=== PATIENT | female | born 1960 ===

== ENCOUNTER 2020-07-30 18:05 | Inpatient (IN) | payer BC, OTHER ==
[~2020-07-30] VITALS: Ht 162.6 cm; Wt 91.8 kg
--- NOTE | 2020-07-30 18:22 | NUR ---
BIB [facility]IGHT FROM [facility] FOR C/O ABD PAIN AND EPIGASTRIC ABD PAIN. PT STATES IT STARTED SUNDAY AND BECAME CONSISTENT ON SUNDAY. HAD US DONE AT OUTLYING FACILITY AND FOUND TO HAVE CHOLECYSTITIS. WBC 17.8. UA NEGATIVE. WAS GIVEN ZOSYN, FLAGYL, ZOFRAN PROCESS DESIGN ENGINEER AND 1L NS IN PROGRESS ON ARRIVAL. PT RESTING ON [place]ING[place]. NADN. MONITORS APPLIED.
--- NOTE | 2020-07-30 18:24 | NUR ---
ERP DR. MACARIO AT BEDSIDE FOR EVAL.
--- NOTE | 2020-07-30 18:54 | NUR ---
SURGEON DR. DIETRICH AT BEDSIDE FOR EVAL.
[2020-07-30 19:23] LABS: MEAN CORPUSCULAR HEMOGLOBIN 31.4 pg (27.0-34.8); MEAN CORPUSCULAR HGB CONC 33.4 g/dL (32.4-35.8); PLATELET COUNT 243 x10^3/uL (130-400); RED BLOOD COUNT 4.94 x10^6/uL (3.82-5.3); RED CELL DISTRIBUTION WIDTH 14.1 % (9.6-15.2)
[2020-07-30 19:30] LABS: ALBUMIN 3.4 g/dL (3.4-5.0); ANION GAP 8 mmol/L (5-15); CHLORIDE 109 mmol/L (98-107)
[2020-07-30 19:33] LABS: ALANINE AMINOTRANSFERASE 19 U/L (12-78); ALKALINE PHOSPHATASE 57 U/L (45-117); BILIRUBIN,TOTAL 0.7 mg/dL (0.2-1.0); CREATININE 0.57 mg/dL (0.55-1.02); TOTAL PROTEIN 7.7 g/dL (6.4-8.2)
[2020-07-30] MEDS ORDERED: MORPHINE SULFATE 4 MG/ML, 1ML ONE (19:45)
[2020-07-30] MEDS ORDERED: ONDANSETRON 2MG/ML, 2ML ONE (19:45)
[2020-07-30 19:57] LABS: LYMPH#(MANUAL) 2.09 x10^3/uL (1-3.4); LYMPHS% (MANUAL) 11 % (22-44); MONOS% (MANUAL) 10 % (2-9); SEG#(MANUAL) 15.01 x10^3/uL (1.8-6.8); SEGS% (MANUAL) 79 % (42-75)
[2020-07-30 19:58] LABS: <PLATELET ESTIMATE> ADEQUATE; <PLT MORPHOLOGY> NORMAL PLT MORPH; <RBC MORPHOLOGY> NORMAL; <WBC MORPHOLOGY> NORMAL
[2020-07-30] MEDS ORDERED: MORPHINE SULFATE 4 MG/ML, 1ML IVPush PRN (20:00)
[2020-07-30] MEDS ORDERED: SODIUM CHLORIDE 0.9% 1,000 ML IV ONE (20:00)
[2020-07-30] MEDS ORDERED: ONDANSETRON 2MG/ML, 2ML IVPush PRN ×2 (20:00→21:00)
--- NOTE | 2020-07-30 20:10 | NUR ---
PT RESTING ON GURNEY. NADN. MURPHY.
--- NOTE | 2020-07-30 20:34 | NUR ---
REPORT GIVEN TO LORNA RODRIGUEZ RN. ALL QUESTIONS ANSWERED. AWAITING PT TRANSPORT.
[2020-07-30] MEDS ORDERED: morphine SULFATE 10 MG/ML, 1ML IVPush PRN (21:00)
[2020-07-30] MEDS ORDERED: LABETALOL 5MG/ML, 20ML IVPush PRN (21:00)
[2020-07-30] MEDS ORDERED: ACETAMINOPHEN 325 MG TABLET PO PRN (21:00)
[2020-07-30] MEDS ORDERED: LACTATED RINGERS 1,000 ML IV SCH (21:00)
[2020-07-30 21:30] VITALS: BP 150/83
[2020-07-30] MEDS: NICOTINE 21 MG/24 HR PATCH.TD24 TD SCH (22:00)
[2020-07-30 22:12] LABS: TROPONIN I < 0.015 ng/mL (0.000-0.045)
[2020-07-31] MEDS: PIPERACILLIN/TAZO 3.375 GM in DEXTROSE 5% 50 ML IV SCH ×2 (00:40→06:33)
[2020-07-31 02:54] VITALS: BP 125/75
[2020-07-31 05:43] LABS: CHLORIDE 108 mmol/L (98-107)
[2020-07-31 05:49] LABS: ALANINE AMINOTRANSFERASE 20 U/L (12-78); ALBUMIN 3.1 g/dL (3.4-5.0); ALKALINE PHOSPHATASE 54 U/L (45-117); ANION GAP 4 mmol/L (5-15); BILIRUBIN,TOTAL 0.6 mg/dL (0.2-1.0); CALCIUM 9.1 mg/dL (8.5-10.1); CREATININE 0.49 mg/dL (0.55-1.02); TOTAL PROTEIN 7.1 g/dL (6.4-8.2)
[2020-07-31 05:50] LABS: BASOPHILS % (AUTO) 1 % (0-1); EOSINOPHILS % (AUTO) 0 % (1-7); LYMPHOCYTES % (AUTO) 11 % (22-44); MEAN CORPUSCULAR HEMOGLOBIN 31.6 pg (27.0-34.8); MEAN CORPUSCULAR HGB CONC 33.4 g/dL (32.4-35.8); MEAN PLATELET VOLUME 9.1 fL (7.4-10.4); MONOCYTES % (AUTO) 10 % (2-9); NEUTROPHILS % (AUTO) 79 % (42-75); PLATELET COUNT 215 x10^3/uL (130-400); RED CELL DISTRIBUTION WIDTH 14.4 % (9.6-15.2)
[2020-07-31] MEDS ORDERED: EPINEPHRINE 1 MG/ML, 1ML ONE (07:05)
[2020-07-31] MEDS ORDERED: BUPIVACAINE/PF 0.5% ONE (07:05)
[2020-07-31] MEDS ORDERED: HYDROmorphone 1 MG/ML, 1ML INJ IVPush PRN (08:00)
[2020-07-31] MEDS ORDERED: FENTANYL PF 100 MCG/2ML IV PRN (08:00)
[2020-07-31] MEDS ORDERED: hydrALAzine 20 MG/ML, 1ML IV PRN (08:00)
[2020-07-31] MEDS ORDERED: PROMETHAZINE 25 MG/ML, 1ML IVPush PRN (08:00)
[2020-07-31] MEDS ORDERED: OXYcodone 5 MG/5 ML ORAL.SOL UDC PO PRN (08:00)
[2020-07-31] MEDS ORDERED: EPHEDRINE 50 MG/ML, 1ML IVPush PRN (08:00)
[2020-07-31] MEDS ORDERED: ONDANSETRON 2MG/ML, 2ML IVPush PRN (08:00)
[2020-07-31] MEDS ORDERED: ACETAMINOPHEN 325 MG TABLET PO PRN (08:00)
[2020-07-31] MEDS ORDERED: LABETALOL 5MG/ML, 20ML IV PRN (08:00)
[2020-07-31] MEDS ORDERED: FENTANYL PF 100 MCG/2ML ONE (08:03)
[2020-07-31] MEDS ORDERED: MIDAZOLAM 1 MG/ML, 2ML ONE (08:03)
[2020-07-31] MEDS ORDERED: CEFAZOLIN 1,000 MG ONE (08:25)
[2020-07-31] MEDS: HEPARIN 5,000 UNITS/ML, 1ML SQ SCH ×2 (08:30→16:41)
[2020-07-31] MEDS ORDERED: PROPOFOL 10 MG/ML, 20ML ONE (08:35)
[2020-07-31] MEDS ORDERED: SUCCINYLCHOLINE 20 MG/ML, 10ML ONE (08:35)
[2020-07-31] MEDS ORDERED: ROCURONIUM 10MG/ML,5ML ONE (08:35)
[2020-07-31] MEDS ORDERED: DEXAMETHASONE 4 MG/ML, 5ML ONE (08:35)
[2020-07-31] MEDS ORDERED: ONDANSETRON 2MG/ML, 2ML ONE (08:35)
[2020-07-31] MEDS ORDERED: SUGAMMADEX 200 MG/2 ML IVPush ONE (08:35)
[2020-07-31] MEDS ORDERED: KETOROLAC 30 MG/1 ML ONE (08:37)
[2020-07-31] MEDS ORDERED: LIDOCAINE-MPF 2% ,5ML ONE (08:37)
[2020-07-31] MEDS ORDERED: EPHEDRINE 50 MG/ML, 1ML ONE ×2 (08:41)
[2020-07-31] MEDS ORDERED: HYDROmorphone 1 MG/ML, 1ML INJ ONE (09:03)
[2020-07-31] MEDS: CARVEDILOL 6.25 MG TABLET PO SCH ×2 (09:07→16:41)
[2020-07-31] MEDS ORDERED: ACETAMINOPHEN 650 MG/20.3 ML UDC ONE (10:02)
[2020-07-31] MEDS ORDERED: OXYcodone 5 MG/5 ML ORAL.SOL UDC ONE (10:03)
[2020-07-31 12:36] LABS: INTERNATIONAL NORMALIZED RATIO 1.07 (0.93-1.1); PROTHROMBIN TIME 11.4 Seconds (9.6-11.5)
[2020-07-31 14:09] VITALS: BP 121/78
[2020-07-31] MEDS: METRONIDAZOLE PMX 500MG/100ML 100 ML IV SCH ×2 (15:00→23:33)
[2020-07-31] MEDS: CEFTRIAXONE 2 GM in DEXTROSE 5% 50 ML IVPB SCH (15:20)
[2020-07-31] MEDS: SENNA/DOCUSATE TABLET PO SCH ×2 (15:20→20:53)
[2020-07-31 16:40] VITALS: BP 159/84
[2020-07-31] MEDS: OXYcodone IR 5MG TABLET PO PRN ×2 (16:41→23:33)
[2020-07-31 19:09] VITALS: BP 133/82
[2020-07-31] MEDS: NICOTINE 21 MG/24 HR PATCH.TD24 TD SCH (21:00)
[2020-07-31] MEDS ORDERED: LACTATED RINGERS 1,000 ML IV SCH (21:00)
[2020-08-01] MEDS: HEPARIN 5,000 UNITS/ML, 1ML SQ SCH ×3 (00:25→16:37)
[2020-08-01 01:07] VITALS: BP 133/83
[2020-08-01 05:40] LABS: BASOPHILS % (AUTO) 0 % (0-1); EOSINOPHILS % (AUTO) 0 % (1-7); LYMPHOCYTES % (AUTO) 12 % (22-44); MEAN CORPUSCULAR HEMOGLOBIN 31.6 pg (27.0-34.8); MEAN CORPUSCULAR HGB CONC 33.4 g/dL (32.4-35.8); MONOCYTES % (AUTO) 7 % (2-9); NEUTROPHILS % (AUTO) 81 % (42-75); PLATELET COUNT 210 x10^3/uL (130-400); RED BLOOD COUNT 4.19 x10^6/uL (3.82-5.3)
[2020-08-01] MEDS: CARVEDILOL 6.25 MG TABLET PO SCH ×2 (05:54→18:15)
[2020-08-01] MEDS: OXYcodone IR 5MG TABLET PO PRN ×3 (05:54→18:21)
[2020-08-01 06:00] LABS: ANION GAP 5 mmol/L (5-15); CALCIUM 8.8 mg/dL (8.5-10.1); CHLORIDE 103 mmol/L (98-107)
[2020-08-01 06:04] LABS: CREATININE 0.54 mg/dL (0.55-1.02)
[2020-08-01] MEDS: METRONIDAZOLE PMX 500MG/100ML 100 ML IV SCH (06:41)
[2020-08-01 07:50] VITALS: BP 113/77
[2020-08-01] MEDS: SENNA/DOCUSATE TABLET PO SCH ×2 (08:48→22:17)
[2020-08-01 13:22] VITALS: BP 118/88
[2020-08-01 13:26] LABS: ALANINE AMINOTRANSFERASE 80 U/L (12-78); ALBUMIN 2.7 g/dL (3.4-5.0); ANION GAP 7 mmol/L (5-15); CALCIUM 8.8 mg/dL (8.5-10.1); CHLORIDE 101 mmol/L (98-107); CREATININE 0.55 mg/dL (0.55-1.02)
[2020-08-01 13:28] LABS: ALKALINE PHOSPHATASE 55 U/L (45-117); BILIRUBIN,TOTAL 0.4 mg/dL (0.2-1.0); TOTAL PROTEIN 6.9 g/dL (6.4-8.2)
[2020-08-01] MEDS: metroNIDAZOLE 500 MG TABLET PO SCH ×2 (14:23→22:17)
[2020-08-01] MEDS: CEFTRIAXONE 2 GM in DEXTROSE 5% 50 ML IVPB SCH (15:25)
[2020-08-01 18:14] VITALS: BP 131/84
[2020-08-01] MEDS: LACTATED RINGERS 1,000 ML IV SCH (21:00)
[2020-08-01] MEDS: NICOTINE 21 MG/24 HR PATCH.TD24 TD SCH (22:16)
[2020-08-02] MEDS: OXYcodone IR 5MG TABLET PO PRN ×3 (01:02→17:41)
[2020-08-02] MEDS: HEPARIN 5,000 UNITS/ML, 1ML SQ SCH ×3 (01:02→17:13)
[2020-08-02 02:37] VITALS: BP 114/70
[2020-08-02 05:40] LABS: BASOPHILS % (AUTO) 0 % (0-1); EOSINOPHILS % (AUTO) 1 % (1-7); LYMPHOCYTES % (AUTO) 28 % (22-44); MEAN CORPUSCULAR HEMOGLOBIN 31.7 pg (27.0-34.8); MEAN CORPUSCULAR HGB CONC 33.1 g/dL (32.4-35.8); MONOCYTES % (AUTO) 9 % (2-9); NEUTROPHILS % (AUTO) 63 % (42-75); PLATELET COUNT 260 x10^3/uL (130-400); RED BLOOD COUNT 4.37 x10^6/uL (3.82-5.3); RED CELL DISTRIBUTION WIDTH 14.1 % (9.6-15.2)
[2020-08-02] MEDS: CARVEDILOL 6.25 MG TABLET PO SCH ×2 (06:29→18:24)
[2020-08-02] MEDS: metroNIDAZOLE 500 MG TABLET PO SCH ×3 (06:29→22:14)
[2020-08-02 07:20] VITALS: BP 114/77
[2020-08-02 08:20] LABS: ALANINE AMINOTRANSFERASE 83 U/L (12-78); ALBUMIN 2.5 g/dL (3.4-5.0)
[2020-08-02 08:21] LABS: ALKALINE PHOSPHATASE 69 U/L (45-117); BILIRUBIN,TOTAL 0.3 mg/dL (0.2-1.0); TOTAL PROTEIN 7.1 g/dL (6.4-8.2)
[2020-08-02 08:25] LABS: BILIRUBIN, DIRECT < 0.1 mg/dL (0.1-0.2); BILIRUBIN,INDIRECT 0.2 mg/dL (0.0-2.0)
[2020-08-02] MEDS ORDERED: BISACODYL 10 MG SUPP PR SCH (09:00)
[2020-08-02] MEDS: AMOXICILLIN 500 MG CAPSULE PO SCH ×2 (09:15→20:24)
[2020-08-02] MEDS: SENNA/DOCUSATE TABLET PO SCH ×2 (09:15→20:24)
[2020-08-02] MEDS ORDERED: ACET325T26 PO (09:36)
[2020-08-02] MEDS ORDERED: NICO-587 TD (09:36)
[2020-08-02] MEDS ORDERED: METR500T PO (09:36)
[2020-08-02] MEDS ORDERED: AMOX-291 PO (09:36)
[2020-08-02] MEDS ORDERED: SENN-211 PO (09:36)
[2020-08-02] MEDS ORDERED: CARV6.2512 PO (09:36)
[2020-08-02] MEDS: LACTATED RINGERS 1,000 ML IV SCH (11:09)
[2020-08-02 13:03] VITALS: BP 134/82
[2020-08-02 17:51] VITALS: BP 138/82
[2020-08-02 18:52] VITALS: BP 129/80
[2020-08-02] MEDS: NICOTINE 21 MG/24 HR PATCH.TD24 TD SCH (22:14)
[2020-08-03] MEDS: HEPARIN 5,000 UNITS/ML, 1ML SQ SCH ×2 (00:43→10:12)
[2020-08-03] MEDS: OXYcodone IR 5MG TABLET PO PRN ×2 (00:46→06:15)
[2020-08-03] MEDS: LACTATED RINGERS 1,000 ML IV SCH ×2 (01:36→14:49)
[2020-08-03 02:04] VITALS: BP 130/81
[2020-08-03] MEDS: CARVEDILOL 6.25 MG TABLET PO SCH (06:15)
[2020-08-03] MEDS: metroNIDAZOLE 500 MG TABLET PO SCH ×2 (06:15→14:49)
[2020-08-03 08:02] VITALS: BP 115/76
[2020-08-03] MEDS ORDERED: BISACODYL 10 MG SUPP PR PRN (08:30)
[2020-08-03] MEDS ORDERED: SENNA/DOCUSATE TABLET PO PRN (08:30)
[2020-08-03] MEDS ORDERED: OXYcodone IR 5MG TABLET PO PRN (10:00)
[2020-08-03] MEDS: AMOXICILLIN 500 MG CAPSULE PO SCH (10:12)
[2020-08-03 12:39] VITALS: BP 139/84
== END 2020-08-03 15:27 | disposition home health service (06) | DRG 853 ==
LOC: ED 21:02 → EDIP 21:03 → 4NE 21:15 → DCLOUNGE 08-03 15:13
PROVIDERS: ADMIT Family Medicine; ATTEND Internal Medicine
PROC: 0FT44ZZ Resection of Gallbladder, Percutaneous Endoscopic Approach (ICD-10-PCS; principal; 2020-07-31 08:45)
DX: A41.9 Sepsis, unspecified organism (principal); J96.01 Acute respiratory failure with hypoxia; Z68.41 Body mass index [BMI] 40.0-44.9, adult; E66.2 Morbid (severe) obesity with alveolar hypoventilation; K80.00 Calculus of gallbladder with acute cholecystitis without obstruction; K82.A1 Gangrene of gallbladder in cholecystitis; I10 Essential (primary) hypertension; J30.2 Other seasonal allergic rhinitis; F17.200 Nicotine dependence, unspecified, uncomplicated; K76.0 Fatty (change of) liver, not elsewhere classified; Z71.6 Tobacco abuse counseling; Z20.822 Contact with and (suspected) exposure to COVID-19
CPT/HCPCS: 36415; 36600; 96374; 96375; 99285; J3490; S0020; 80048; 80053; 80076; 82803; 83690; 83880; 84484; 85025; 85610; 87040; 87635; 88304; 93005; C1729; G0378; J0171; J0690; J0696; J1100; J1170; J1644; J1885; J2250; J2405; J2543; J2704; J3010; J0330; J2270; J7030; J7120